=== PATIENT | female | born 1985 | race Caucasian/White ===

== ENCOUNTER → 2017-05-28 | Outpatient (CLI) | payer OTHER ==
[~2017-05-28] MED LIST: ATIVAN1 MG PO; BENADRYL25 MG PO; CYMBALTA60 MG PO; DULERA 100 MCG/13 GM IH; FISH OIL PO; GLUCOPHAGE1000 MG PO; HYDROCHLOROTHIA25 MG PO; LEVO-T88 MCG PO; METHOTREXATE2.5 MG PO; NORVASC10 MG PO; PRINIVIL20 MG PO; PROTONIX20 MG PO; QUESTRAN PACKET4 GM PO; TAYTULLA 1 MG-1 EACH PO; TOPAMAX50 MG PO; TRAZODONE HCL50 MG PO; VENTOLIN HFA18 GM IH; VITAMIN D2000 UNI1 PO; ZOFRAN4 MG PO
== END | disposition home or self-care (01) ==
LOC: CDC 15:04
DX: Z01.810 Encounter for preprocedural cardiovascular examination (principal); K81.9 Cholecystitis, unspecified; R94.31 Abnormal electrocardiogram [ECG] [EKG]; R00.0 Tachycardia, unspecified
CPT/HCPCS: 93000

== ENCOUNTER 2017-06-03 08:28 | Day surgery (SDC) | payer OTHER ==
[~2017-06-03] VITALS: Ht 160 cm; Wt 128.0 kg
[2017-06-03 09:04] VITALS: BP 114/57
[2017-06-03 09:44] LABS: POINT-OF-CARE METER ID UU13113694
[2017-06-03 10:56] LABS: INTERNAL CONTROL VALID? YES
[2017-06-03] MEDS ORDERED: NORCO 5/3251 TABLET PO (13:27)
[2017-06-03] MEDS ORDERED: MOTRIN600 MG PO (13:27)
[2017-06-03 13:42] LABS: POINT-OF-CARE METER ID UU13113675
[2017-06-03 15:20] VITALS: BP 134/77
[2017-06-03 16:38] VITALS: BP 136/75
[2017-06-03 17:16] VITALS: BP 140/77
== END 2017-06-03 17:20 | disposition home or self-care (01) ==
LOC: SDC 08:28
PROVIDERS: Surgery
DX: K80.10 Calculus of gallbladder with chronic cholecystitis without obstruction (principal); K74.0 Hepatic fibrosis; J45.909 Unspecified asthma, uncomplicated; I10 Essential (primary) hypertension; F41.8 Other specified anxiety disorders; K21.9 Gastro-esophageal reflux disease without esophagitis; E03.9 Hypothyroidism, unspecified; E66.01 Morbid (severe) obesity due to excess calories; Z68.43 Body mass index [BMI] 50.0-59.9, adult; Z79.84 Long term (current) use of oral hypoglycemic drugs; Z88.0 Allergy status to penicillin; Z80.0 Family history of malignant neoplasm of digestive organs
CPT/HCPCS: 74300; 82948; 84703; 88304; 88307; 88313; C1769; J0131; J1170; J2250; J2765; J3010; S0020

== ENCOUNTER → 2017-06-24 | Outpatient (CLI) | payer OTHER ==
[~2017-06-24] MED LIST changes: +MOTRIN600 MG PO; +NORCO 5/3251 TABLET PO
[2017-06-24 08:28] LABS: POINT-OF-CARE METER ID UU14107333
[2017-06-24 09:13] LABS: MCH 29.9 PG (29.0-34.0); MCHC 34.3 G/DL (30.0-36.0); MCV 87.3 FL (83-99); MEAN PLAT.VOLUME 9.4 uM^3 (9.5-12.4); PLATELET COUNT 361 K/uL (156-360); RBC DIS.WIDTH-CV 13.9 % (11.8-14.6); RBC DIS.WIDTH-SD 43.3 % (39-53); RED BLOOD COUNT 4.01 M/uL (3.80-5.20); WHITE BLOOD COUNT 10.3 K/uL (4.1-10.2)
[2017-06-24 09:27] LABS: DIRECT BILIRUBIN 0.1 mg/dL (0.0-0.3); TOTAL BILIRUBIN 0.5 MG/DL (0.0-1.0)
[2017-06-24 09:33] LABS: ALKALINE PHOSPHATASE 72 IU/L (3-129)
== END | disposition home or self-care (01) ==
LOC: AMB 07:57
PROVIDERS: Surgery
DX: G89.18 Other acute postprocedural pain (principal); R10.9 Unspecified abdominal pain; M79.7 Fibromyalgia; K74.0 Hepatic fibrosis; K76.0 Fatty (change of) liver, not elsewhere classified; Z90.49 Acquired absence of other specified parts of digestive tract
CPT/HCPCS: 74177; 80076; 82948; 85027; 99212